=== PATIENT | male | born 1995 | race African-American/Black ===

== ENCOUNTER 2018-03-22 23:14 | Emergency (ER) | payer OTHER ==
--- NOTE | 2018-03-22 23:46 | EDPHYS ---
Physician Documentation [facility] Name: Arden Vincent Age: 22 yrs Sex: Male : 1995 Arrival Date: 03/22/2018 Time: 23:15 Bed 16 Private MD: ED Physician Wade Rodriguez HPI: 03/22 23:44 This 22 yrs old Black Male presents to ER via [employer] with complaints of Hernia.pm1 23:44 The patient presents with left inguinal hernia. Onset: The symptoms/episode pm1 began/occurred today. Associated signs and symptoms: Pertinent negatives: nausea, vomiting, and diarrhea, chest pain, dysuria, fever, shortness of breath, testicular pain. 23:44 Patient with left inguinal hernia present since the age 15. Patient able to reduce it pm1 if it comes out when he coughs or sneezes. Today it took longer to reduce and was more painful at that time. Patient was able to reduce it and currently does not have any discomfort. Patient is here hoping that he will be able to get surgery to repair his hernia. Historical: - Allergies: 23:21 No Known Allergies; ea - PMHx: 23:21 None; ea - PSHx: 23:21 None; ea - Immunization history:: Adult Immunizations up to date. - Social history:: Smoking status: Patient/guardian denies using tobacco, Patient/guardian denies using. - Ebola Screening: : No symptoms or risks identified at this time. ROS: 23:44 Constitutional: Negative for fever, chills, and weight loss, Eyes: Negative for injury, pm1 pain, redness, and discharge, ENT: Negative for injury, pain, and discharge, Neck: Negative for injury, pain, and swelling, Cardiovascular: Negative for chest pain, palpitations, and edema, Respiratory: Negative for shortness of breath, cough, wheezing, and pleuritic chest pain. 23:44 Abdomen/GI: Negative for abdominal pain, nausea, vomiting, diarrhea, and constipation, Back: Negative for injury and pain. 23:44 : Negative for injury, bleeding, discharge, and swelling, MS/Extremity: Negative for injury and deformity, Skin: Negative for injury, rash, and discoloration, Neuro: Negative for headache, weakness, numbness, tingling, and seizure. Exam: 23:44 Constitutional: This is a well developed, well nourished patient who is awake, alert, pm1 and in no acute distress. Head/Face: Normocephalic, atraumatic. Neck: Trachea midline, no thyromegaly or masses palpated, and no cervical lymphadenopathy. Supple, full range of motion without nuchal rigidity, or vertebral point tenderness. No Meningismus. Chest/axilla: Normal chest wall appearance and motion. Nontender with no deformity. No lesions are appreciated. Cardiovascular: Regular rate and rhythm with a normal S1 and S2. No gallops, murmurs, or rubs. Normal PMI, no JVD. No pulse deficits. Respiratory: Lungs have equal breath sounds bilaterally, clear to auscultation and percussion. No rales, rhonchi or wheezes noted. No increased work of breathing, no retractions or nasal flaring. 23:44 Back: No spinal tenderness. No costovertebral tenderness. Full range of motion. Skin: Warm, dry with normal turgor. Normal color with no rashes, no lesions, and no evidence of cellulitis. MS/ Extremity: Pulses equal, no cyanosis. Neurovascular intact. Full, normal range of motion. 23:44 Abdomen/GI: Inspection: abdomen appears normal, Bowel sounds: normal, Palpation: abdomen is soft and non-tender, in all quadrants, Hernia: not appreciated, noted in the right inguinal area, left inguinal area, right femoral area and left femoral area, No skin color changes present to groin and genitalia. Guard present in room during assessment of patient's left inguinal hernia and genitalia. 23:44 Neuro: Orientation: is normal, Motor: is normal, moves all fours, Gait: is steady, at a normal pace, without difficulty. Vital Signs: 23:23 BP 129 / 86; Pulse 63; Resp 18; Temp 98.7(O); Pulse Ox 100% on R/A; Weight 79.38 kg; ea Height 5 ft. 7 in. (170.18 cm); Pain 11/27; 03/23 00:00 BP 128 / 68; Pulse 60; Resp 18; Temp 98.5(O); Pulse Ox 99% ; ea 03/22 23:23 Body Mass Index 27.41 (79.38 kg, 170.18 cm) ea MDM: 03/22 23:44 Patient medically screened. pm1 23:44 Data reviewed: vital signs. Data interpreted: Pulse oximetry: on room air is 100 %. pm1 Interpretation: normal. Counseling: I had a detailed discussion with the patient and/or guardian regarding: the historical points, exam findings, and any diagnostic results supporting the discharge/admit diagnosis, the need for outpatient follow up, for definitive care, a general surgeon, to return to the emergency department if symptoms worsen or persist or if there are any questions or concerns that arise at home. Administered Medications: 23:55 Drug: Ibuprofen 600 mg Route: PO; ea 03/23 00:07 Follow up: Response: Medication administered at discharge. ea Disposition: 02:11 Co-signature as Attending Physician, Wade Rodriguez MD. rn Disposition: 03/22/18 23:45 Discharged to Home. Impression: Unilateral inguinal hernia, without obstruction or gangrene, recurrent. - Condition is Stable. - Discharge Instructions: Inguinal Hernia, Adult. - Medication Reconciliation Form, Thank You Letter, Antibiotic Education, Prescription Opioid Use form. - Follow up: Emergency Department; When: As needed; Reason: Worsening of condition. Follow up: Private Physician; When: 2 - 3 days; Reason: Recheck today's complaints, Continuance of care, Re-evaluation by your physician. Follow up: Macario Stephens MD; When: 2 - 3 days; Reason: Recheck today's complaints, Continuance of care, Re-evaluation by your physician. - Problem is new. - Symptoms have improved. Signatures: Wade Rodriguez MD MD rn Arden Marx NP [employer] OPERATOR pm1 Suze Fernandez RN RN ea Corrections: (The following items were deleted from the chart) 00:12 03/22 23:45 03/22/2018 23:45 Discharged to Home. Impression: Unilateral inguinal ea hernia, without obstruction or gangrene, recurrent. Condition is Stable. Forms are Medication Reconciliation Form, Thank You Letter, Antibiotic Education, Prescription Opioid Use. Follow up: Emergency Department; When: As needed; Reason: Worsening of condition. Follow up: Private Physician; When: 2 - 3 days; Reason: Recheck today's complaints, Continuance of care, Re-evaluation by your physician. Follow up: Macario Stephens; When: 2 - 3 days; Reason: Recheck today's complaints, Continuance of care, Re-evaluation by your physician. Problem is new. Symptoms have improved. pm1
--- NOTE | 2018-03-22 23:46 | ER ---
Nurse's Notes [facility] Name: Arden Vincent Age: 22 yrs Sex: Male : 1995 Arrival Date: 03/22/2018 Time: 23:15 Bed 16 Private MD: Diagnosis: Unilateral inguinal hernia, without obstruction or gangrene, recurrent Presentation: 03/22 23:15 Presenting complaint: Patient states: Reports he has a hernia that sometimes falls into ea his groin area that can be usually pushed back, reports today it almost didn't go back and it was really painful. Transition of care: patient was not received from another setting of care. Onset of symptoms was March 22, 2018. Risk Assessment: Do you want to hurt yourself or someone else? Patient reports no desire to harm self or others. Initial Sepsis Screen: Does the patient meet any 2 criteria? No. Patient's initial sepsis screen is negative. Does the patient have a suspected source of infection? No. Patient's initial sepsis screen is negative. Care prior to arrival: None. 23:15 Method Of Arrival: [employer]: [place] [employer] ea 23:15 Acuity: FANNY 3 ea Triage Assessment: 23:21 General: Appears in no apparent distress. uncomfortable, Behavior is calm, cooperative, ea appropriate for age. Pain: Complains of pain in left groin. EENT: No signs and/or symptoms were reported regarding the EENT system. Neuro: Level of Consciousness is awake, alert, obeys commands, Oriented to person, place, time, situation. Cardiovascular: Patient's skin is warm and dry. Respiratory: Airway is patent Respiratory effort is even, unlabored, Respiratory pattern is regular, symmetrical. GI: No signs and/or symptoms were reported involving the gastrointestinal system. : No signs and/or symptoms were reported regarding the genitourinary system. Derm: Skin is pink, warm \T\ dry. Musculoskeletal: Circulation, motion, and sensation intact. Historical: - Allergies: 23:21 No Known Allergies; ea - PMHx: 23:21 None; ea - PSHx: 23:21 None; ea - Immunization history:: Adult Immunizations up to date. - Social history:: Smoking status: Patient/guardian denies using tobacco, Patient/guardian denies using. - Ebola Screening: : No symptoms or risks identified at this time. Screenin:27 Abuse screen: Denies threats or abuse. Nutritional screening: No deficits noted. ea Tuberculosis screening: No symptoms or risk factors identified. Fall Risk None identified. Assessment: 23:55 Reassessment: Patient and/or family updated on plan of care and expected duration. Pain ea level reassessed. Patient is alert, oriented x 3, equal unlabored respirations, skin warm/dry/pink. Discharge instructions given to patient, verbalized the understanding of instruction. Pt accompanied by correctional officers. Vital Signs: 23:23 BP 129 / 86; Pulse 63; Resp 18; Temp 98.7(O); Pulse Ox 100% on R/A; Weight 79.38 kg; ea Height 5 ft. 7 in. (170.18 cm); Pain 4/10; 03/23 00:00 BP 128 / 68; Pulse 60; Resp 18; Temp 98.5(O); Pulse Ox 99% ; ea 03/22 23:23 Body Mass Index 27.41 (79.38 kg, 170.18 cm) ea ED Course: 03/22 23:15 Patient arrived in ED. ea 23:20 Triage completed. ea 23:22 Arden Marx NP is PHCP. pm1 23:22 Wade Rodriguez MD is Attending Physician. pm1 23:28 Patient has correct armband on for positive identification. Bed in low position. Call ea light in reach. Side rails up X2. 23:28 Arm band placed on right wrist. Patient placed in an exam room, on a stretcher, on ea pulse oximetry. 23:45 Macario Stephens MD is Referral Physician. pm1 03/23 00:09 No provider procedures requiring assistance completed. Patient did not have IV access ea during this emergency room visit. Administered Medications: 03/22 23:55 Drug: Ibuprofen 600 mg Route: PO; ea 03/23 00:07 Follow up: Response: Medication administered at discharge. ea Outcome: 03/22 23:45 Discharge ordered by . pm1 03/23 00:10 Discharged to correctional officers ea Condition: good Discharge instructions given to patient, correctional officers Instructed on discharge instructions, follow up and referral plans. Demonstrated understanding of instructions, follow-up care. 00:12 Patient left the ED. ea Signatures: Arden Marx NP [employer] pm1 Fernandez, Suze, RN RN ea
[2018-03-23] MEDS ORDERED: IBUPROFEN 200 MG TAB PO ONE
[2018-03-23] MEDS ORDERED: IBUPROFEN 400 MG TAB ONE
== END 2018-03-23 00:12 | disposition home or self-care (01) ==
LOC: ER 23:14
DX: K40.90 Unilateral inguinal hernia, without obstruction or gangrene, not specified as recurrent (principal)
CPT/HCPCS: 99283